=== PATIENT | male | born 1950 | race Caucasian/White ===

== ENCOUNTER 2017-03-12 04:49 | Emergency (ER) | payer MEDICARE, MEDICAID ==
[~2017-03-12] VITALS: Ht 167.6 cm; Wt 79.5 kg
[2017-03-12 04:51] VITALS: Ht 167.6 cm; Wt 79.5 kg
[2017-03-12] MEDS ORDERED: FLUC150T17 PO (06:26)
[2017-03-12] MEDS ORDERED: CLOT30CR24 TOP (06:26)
--- NOTE | 2017-03-12 06:32 | ERD ---
ER Documentation Chief Complaint Date/Time DATE: 03/12/17 TIME: 06:29 Chief Complaint penile itchiness " jock itch" HPI 66-year-old male presents with "jock itch" which she has been dealing with for approximately 2-3 months now. Patient reports that he was given a cream about 2 weeks ago which she applied to the area twice a day. He has itching in the groin, and over the scrotum. He denies any drainage, penile discharge, fevers or chills. He denies dysuria, urgency, frequency. ROS All systems reviewed and are negative except as per history of present illness. Medications Home Meds Active Scripts Clotrimazole* (Clotrimazole* AF) 1% - 30 Gm Cream.gm., 1 APPLIC TOP BID for 7 Days, TUB Prov:MARY FORBES PA-C 03/12/17 Fluconazole* (Diflucan*) 150 Mg Tablet, 150 MG PO ONCE, #2 TAB Prov:MARY FORBES PA-C 03/12/17 Allergies Allergies: Coded Allergies: No Known Allergy (Unverified , 11/08/14) PMhx/Soc History of Surgery: Yes (tattoo removal, appendectomy) Hx Alcohol Use: No Hx Substance Use: No Hx Tobacco Use: No Smoking Status: Never smoker Physical Exam Vitals Vital Signs Date Time Temp Pulse Resp B/P Pulse Ox O2 Delivery O2 Flow Rate FiO2 03/12/17 04:51 98.3 69 20 175/80 100 Physical Exam General: Well-developed, well-nourished. The patient appears in no acute distress. HEENT: Head is normocephalic, atraumatic. No scleral icterus. Neck: Supple. Nontender. Lungs: Clear to auscultation. Normal air movement. Heart: Regular rate and rhythm. S1 and S2 are normal. No murmurs, gallops, or rubs. Abdomen: Nondistended. Extremities: No clubbing or cyanosis. Neurologic: Alert and oriented 3. No focal deficits. Normal speech and gait. Skin: No vesicles to the genital area, normal glans penis, no discharge, no cellulitis. Procedures/MDM 66-year-old male presents emergency department with a drainage, patient will be treated for tinea curious based on location, nature of the rash which is itchy. There are no signs of Leoncio's gangrene, cellulitis, urethritis, HSV, as syphilis. Patient's blood pressure was elevated (>120/80) but appears stable without evidence of hypertension emergency or urgency. The patient was counseled about the risks of hypertension and urged to pursue outpatient monitoring and therapy within a week with their primary care physician. Departure Diagnosis: Primary Impression: Groin rash Condition: Good Patient Instructions: Raul Perry ANN PA-C Mar 12, 2017 06:32
== END 2017-03-12 06:49 | disposition home or self-care (01) ==
LOC: FTE 04:49
DX: R21 Rash and other nonspecific skin eruption (principal)
CPT/HCPCS: 99283

== ENCOUNTER 2018-01-20 11:18 | Inpatient (IN) | END 2018-01-31 16:45 | disposition home or self-care (01) | DRG 640 ==

== ENCOUNTER 2018-02-17 18:21 | Emergency (ER) | END 2018-02-18 05:59 | disposition home or self-care (01) ==

== ENCOUNTER 2018-02-24 23:29 | Emergency (ER) | END 2018-02-25 07:13 | disposition left against medical advice (07) ==